=== PATIENT | male | born 1990 | race Two or more races ===

== ENCOUNTER 2024-03-30 23:47 | Inpatient (IN) | payer OTHER ==
[~2024-03-30] VITALS: Ht 172.7 cm; Wt 89.8 kg
[2024-03-31 00:27] VITALS: TEMP 100.7
[2024-03-31 00:46] LABS: APPEARANCE,URINE CLEAR (CLEAR); BILIRUBIN,URINE NEGATIVE (NEGATIVE); BLOOD, URINE 2+ Ery/uL (NEGATIVE); COLOR,URINE YELLOW (YELLOW); KETONES,URINE NEGATIVE (NEGATIVE); LEUKOCYTE ESTERASE ,URINE NEGATIVE (NEGATIVE); NITRITE, URINE NEGATIVE (NEGATIVE); PROTEIN,URINE TRACE mg/dl (NEGATIVE); UGLUCOSE NEGATIVE (NEGATIVE)
[2024-03-31 00:57] LABS: BASOPHILS % (AUTO) 0.3 % (0.0-2.0); EOSINOPHILS % (AUTO) 0.2 % (0.0-6.0); HEMATOCRIT 41 % (39-51); HEMOGLOBIN 14.4 g/dL (13.5-17.5); LYMPHOCYTES # (AUTO) 1.9 K/uL (0.8-4.8); LYMPHOCYTES % (AUTO) 18.5 % (20.0-44.0); MEAN CORPUSCULAR HEMOGLOBIN 30 PG (26.0-33.0); MEAN CORPUSCULAR HGB CONC 35 g/dl (31.0-36.0); MEAN CORPUSCULAR VOLUME 85 fL (80-96); MONOCYTES # (AUTO) 0.6 K/uL (0.1-1.30); NEUTROPHILS # (AUTO) 7.6 K/uL (1.8-8.9); PLATELET COUNT (AUTO) 200 K/uL (150-450); RED BLOOD CELL COUNT(AUTO) 4.79 MIL/uL (4.5-6.0); RED CELL DISTRIBUTION WIDTH 13.1 % (11.5-15.0); WHITE BLOOD COUNT (AUTO) 10.1 K/uL (4.3-11.0)
[2024-03-31 01:05] LABS: ADD URINE CULTURE NO; BACTERIA,URINE None seen /HPF (None Seen); MUCUS,URINE Few /LPF (None Seen); SQUAMOUS EPITHELIAL CELL,UR None Seen /HPF (None Seen); WBC,URINE NONE SEEN /HPF (0-3)
[2024-03-31] MEDS ORDERED: KETOROLAC TROMETHAMINE INJ 30 MG/ML VIAL ONE (01:05)
[2024-03-31] MEDS ORDERED: PIPERACI/TAZO 3.375GM/D5W 50ML PB IV ONE (01:05)
[2024-03-31] MEDS ORDERED: HYDROMORPHONE INJ 2 MG/ML DISP.SYRIN ONE (01:05)
[2024-03-31] MEDS ORDERED: ONDANSETRON HCL/PF 4 MG/2 ML VIAL ONE (01:05)
[2024-03-31 01:07] LABS: CALCIUM, SERUM 9.1 mg/dL (8.5-10.1); CREATININE 1.1 mg/dL (0.6-1.3); INR 1.06 (0.91-1.10); PARTIAL THROMBOPLASTIN TIME 31.5 SEC (24.3-34.3); POTASSIUM 3.5 mmol/L (3.5-5.1); PROTHROMBIN TIME 11.2 SECS (9.2-11.1)
[2024-03-31 01:12] LABS: ALBUMIN 4.1 g/dL (3.4-5.0); BILIRUBIN,DIRECT 0.4 mg/dL (0.0-0.2); BILIRUBIN,TOTAL 2.7 mg/dL (0.2-1.0); TOTAL PROTEIN, SERUM 7.9 g/dL (6.4-8.2)
[2024-03-31] MEDS: ONDANSETRON HCL/PF 4 MG/2 ML VIAL IVP ONE (01:13)
[2024-03-31] MEDS: HYDROMORPHONE INJ 2 MG/ML DISP.SYRIN IV ONE (01:13)
[2024-03-31] MEDS: KETOROLAC TROMETHAMINE 15 MG/ML VIAL IV ONE (01:13)
[2024-03-31] MEDS ORDERED: IOHEXOL-300 100 ML VIAL IV ONE (01:26)
[2024-03-31] MEDS ORDERED: CT SWABBABLE VALVE TRANS SET 1 EA INFUS.SET MC ONE (01:26)
[2024-03-31] MEDS ORDERED: IV NS 0.9% 250 ML IV ONE (01:26)
[2024-03-31] MEDS: IV NS 0.9% 1,000 ML BAG IV ONE (01:44)
[2024-03-31] MEDS: PIPERACILLIN /TAZOBACTAM 3.375 G in IV D5W 50 ML IV ONE (01:44)
[2024-03-31 03:50] VITALS: BP 122/73; O2SAT 100
[2024-03-31] MEDS ORDERED: MORPHINE SULFATE INJ 2 MG/ML DISP.SYRIN IV PRN (05:30)
[2024-03-31] MEDS ORDERED: Z GUARD REMEDY 4 OZ OINT TP PRN (05:30)
[2024-03-31] MEDS ORDERED: ONDANSETRON HCL/PF 4 MG/2 ML VIAL IVP PRN (05:30)
[2024-03-31] MEDS ORDERED: MAG HYDROX/AL HYDROX/SIMETH 30 ML UDC PO PRN (05:30)
[2024-03-31] MEDS ORDERED: ZOLPIDEM TARTRATE 5 MG TABLET PO PRN (05:30)
[2024-03-31] MEDS ORDERED: MAGNESIUM HYDROXIDE 30 ML UDC PO PRN (05:30)
[2024-03-31] MEDS ORDERED: IV NS 0.9% 1,000 ML IV PRN (05:30)
[2024-03-31] MEDS ORDERED: ACETAMINOPHEN 325 MG TABLET PO PRN (05:30)
== END 2024-03-31 05:45 | disposition left against medical advice (07) | DRG 247 ==
LOC: ER 23:50 → MED 03-31 04:06
PROVIDERS: ADMIT Nurse Practitioner Family; ATTEND Nurse Practitioner Family
DX: K56.609 Unspecified intestinal obstruction, unspecified as to partial versus complete obstruction (principal); K76.0 Fatty (change of) liver, not elsewhere classified; K57.30 Diverticulosis of large intestine without perforation or abscess without bleeding; R74.01 Elevation of levels of liver transaminase levels; Z53.29 Procedure and treatment not carried out because of patient's decision for other reasons; R31.9 Hematuria, unspecified
CPT/HCPCS: 36415; 71045-TC; 74178; 80048-TC; 80076-TC; 81001; 83690-TC; 85025-TC; 85730-TC; G0378; J1171; J1885; J2405; J2543; J7050; J7060; Q9967

== ENCOUNTER 2024-09-19 04:24 | Emergency (ER) | payer MEDICAID, OTHER ==
[~2024-09-19] VITALS: Ht 177.8 cm; Wt 81.6 kg
[2024-09-19] MEDS ORDERED: MORPHINE SULFATE INJ 4 MG/ML DISP.SYRIN ONE (06:07)
[2024-09-19] MEDS ORDERED: ONDANSETRON HCL/PF 4 MG/2 ML VIAL ONE (06:07)
[2024-09-19 06:10] LABS: BASOPHILS % (AUTO) 0.4 % (0.0-2.0); EOSINOPHILS # (AUTO) 0.1 K/uL (0.0-0.7); HEMATOCRIT 41 % (39-51); HEMOGLOBIN 14.5 g/dL (13.5-17.5); LYMPHOCYTES # (AUTO) 1.8 K/uL (0.8-4.8); LYMPHOCYTES % (AUTO) 23.1 % (20.0-44.0); MEAN CORPUSCULAR HEMOGLOBIN 31 PG (26.0-33.0); MEAN CORPUSCULAR HGB CONC 35 g/dl (31.0-36.0); MEAN CORPUSCULAR VOLUME 87 fL (80-96); MONOCYTES # (AUTO) 0.6 K/uL (0.1-1.30); MONOCYTES % (AUTO) 7.8 % (2.0-12.0); NEUTROPHILS # (AUTO) 5.2 K/uL (1.8-8.9); NEUTROPHILS % (AUTO) 67.7 % (43.0-81.0); PLATELET COUNT (AUTO) 194 K/uL (150-450); RED BLOOD CELL COUNT(AUTO) 4.71 MIL/uL (4.5-6.0); RED CELL DISTRIBUTION WIDTH 13.2 % (11.5-15.0); WHITE BLOOD COUNT (AUTO) 7.7 K/uL (4.3-11.0)
[2024-09-19 06:10] LABS: APPEARANCE,URINE CLEAR (CLEAR); BILIRUBIN,URINE NEGATIVE (NEGATIVE); BLOOD, URINE 1+ Ery/uL (NEGATIVE); COLOR,URINE YELLOW (YELLOW); KETONES,URINE TRACE mg/dL (NEGATIVE); LEUKOCYTE ESTERASE ,URINE NEGATIVE (NEGATIVE); NITRITE, URINE NEGATIVE (NEGATIVE); PROTEIN,URINE TRACE mg/dl (NEGATIVE); UGLUCOSE NEGATIVE (NEGATIVE)
[2024-09-19] MEDS: IV NS 0.9% 1,000 ML BAG IV ONE (06:19)
[2024-09-19] MEDS: MORPHINE SULFATE INJ 2 MG/ML DISP.SYRIN IV ONE (06:20)
[2024-09-19] MEDS: ONDANSETRON HCL/PF 4 MG/2 ML VIAL IVP ONE (06:20)
[2024-09-19 06:21] LABS: ADD URINE CULTURE NO; BACTERIA,URINE Few /HPF (None Seen); MUCUS,URINE Few /LPF (None Seen); SQUAMOUS EPITHELIAL CELL,UR None Seen /HPF (None Seen); WBC,URINE NONE SEEN /HPF (0-3)
[2024-09-19 06:24] LABS: INR 0.97 (0.91-1.10); PARTIAL THROMBOPLASTIN TIME 30.2 SEC (24.3-34.3); PROTHROMBIN TIME 10.3 SECS (9.2-11.1)
[2024-09-19 06:39] LABS: ALBUMIN 4.2 g/dL (3.4-5.0); BILIRUBIN,DIRECT 0.2 mg/dL (0.0-0.2); BILIRUBIN,TOTAL 1.1 mg/dL (0.2-1.0); CALCIUM, SERUM 9.4 mg/dL (8.5-10.1); POTASSIUM 3.7 mmol/L (3.5-5.1)
[2024-09-19] MEDS ORDERED: LACT10SO29 PO (09:26)
[2024-09-19 09:42] VITALS: BP 121/84; TEMP 98.5; O2SAT 99
== END 2024-09-19 09:43 | disposition home or self-care (01) ==
LOC: ER 04:26
DX: R10.84 Generalized abdominal pain (principal); E86.0 Dehydration; F17.200 Nicotine dependence, unspecified, uncomplicated
CPT/HCPCS: 99285; 74176; 96374; 71045; 96361; 96375; 85025; 80048; 83690; 80076; 81001; 36415; 85730; J2270; J2405; J7030